=== PATIENT | male | born 1990 | race African-American/Black ===

== ENCOUNTER 2017-11-20 10:18 | Emergency (ER) | payer BC, MEDICAID ==
[2017-11-20 11:37] VITALS: BP 119/68
[2017-11-20] MEDS ORDERED: Ibuprofen TAB* 400 MG PO ONE (11:41)
--- NOTE | 2017-11-20 12:28 | RAD ---
Indication: Neck pain. INDICATION: Neck pain. 5 views of the cervical spine demonstrate vertebral bodies to be normal in height. Disc spaces are well-preserved. Spinal canal appears to be intact. No fracture is noted. IMPRESSION: No fracture of the cervical spine is noted.
--- NOTE | 2017-11-20 12:33 | UC ---
Neck Pain HPI - HPI Summary HPI Summary: Pt reports that he was lifting weights this morning, was lifting a heavy weight and heard a pop and felt a sharp pain in upper back and mid neck. With sudden oset of cervical neck mesa and reduced ROM of neck secondary to pain. also, c/o sudden onset of tingling that radiates from upper back down left arm. - History of Current Complaint Hx Obtained From: Patient Onset/Duration Of Injury/Symptoms: Hours Mechanism Of Injury: No Known Trauma Onset/Duration: Sudden Onset Severity: Moderate Character: Aching, Stiff Aggravating Factors: Movement Alleviating Factors: Position Associated Signs & Symptoms: Positive: Negative - Risk Factors Meningitis Risk Factors: Negative Risk Factors For Cervical Spine Injury: Posterior Midline Cervical Spine Tenderness <Karla Beck NP - Last Filed: 11/20/17 12:37> <Anjali Tomlinson - Last Filed: 11/20/17 13:10> - History of Current Complaint Chief Complaint: UCBackPain Stated Complaint: NECK PAIN Time Seen by Provider: 11/20/17 11:38 - Allergies/Home Medications Allergies/Adverse Reactions: Allergies Allergy/AdvReac Type Severity Reaction Status Date / Time No Known Allergies Allergy Verified 11/20/17 11:37 PMH/Surg Hx/FS Hx/Imm Hx Previously Healthy: Yes - Surgical History Surgical History: Yes Surgery Procedure, Year, and Place: right shoulder - Family History Known Family History: Positive: Cardiac Disease - Social History Occupation: Employed Full-time Lives: With Family Alcohol Use: Rare Substance Use Type: None Smoking Status (MU): Never Smoked Tobacco Have You Smoked in the Last Year: No <Karla Beck NP - Last Filed: 11/20/17 12:37> Review Of Systems Constitutional: Positive: Negative Skin: Positive: Negative Eyes: Positive: Negative ENT: Positive: Negative Respiratory: Positive: Negative Cardiovascular: Positive: Negative Gastrointestinal: Positive: Negative Genitourinary: Positive: Negative Musculoskeletal: Positive: Decreased ROM - neck, Myalgia Neurological: Positive: Negative Psychological: Positive: Negative All Other Systems Reviewed And Are Negative: Yes <Karla Beck NP - Last Filed: 11/20/17 12:37> Physical Exam Triage Information Reviewed: Yes Appearance: Pain Distress - mild Vital Signs: Initial Vital Signs Temp 98.1 F 11/20/17 11:23 Pulse 64 11/20/17 11:23 Resp 18 11/20/17 11:23 BP 119/68 11/20/17 11:23 Vital Signs Reviewed: Yes Eye Exam: Normal ENT Exam: Normal Dental Exam: Normal Neck exam: Other Neck: Positive: Tenderness @ - lower cervical, 5-7 and upper thoracic Respiratory Exam: Normal Cardiovascular Exam: Normal Musculoskeletal Exam: Other Musculoskeletal: Positive: ROM Limited @ - neck Neurological Exam: Normal Psychological Exam: Normal Skin Exam: Normal <Karla Beck NP - Last Filed: 11/20/17 12:37> Vital Signs: Initial Vital Signs Temp 98.1 F 11/20/17 11:23 Pulse 64 11/20/17 11:23 Resp 18 11/20/17 11:23 BP 119/68 11/20/17 11:23 <Anjali Tomlinson - Last Filed: 11/20/17 13:10> Neck Pain Course/Dx - Course Course Of Treatment: INDICATION: Neck pain. 5 views of the cervical spine demonstrate vertebral bodies to be normal in height. Disc. spaces are well- preserved. Spinal canal appears to be intact. No fracture is noted. IMPRESSION : No fracture of the cervical spine is noted. - Differential Dx/Diagnosis Differential Dx/HQI/PQRI: Cervical Fracture, Strain, Torticollis Provider Diagnoses: upper back, cervical neck strain <Karla Beck NP - Last Filed: 11/20/17 12:37> Discharge <Karla Beck NP - Last Filed: 11/20/17 12:37> <Anjali Tomlinson - Last Filed: 11/20/17 13:10> - Discharge Plan Condition: Stable Disposition: HOME Prescriptions: Cyclobenzaprine TAB* [Flexeril 10 MG TAB*] 10 mg PO Q8H PRN #15 tab PRN Reason: Pain Ibuprofen TAB* [Motrin TAB* 800 MG] 800 mg PO Q8H PRN #21 tab PRN Reason: Pain Patient Education Materials: Cervical Strain (ED), Acute Neck Pain (ED) Forms: *Work Release Referrals: Danny Ortiz [Medical Doctor] - If Needed PAULETTE Trejo [Primary Care Provider] - If Needed Attestation Statement User Type: Provider - I was available for consult. This patient was seen by the SARAH. The patient was not presented to, seen by, or examined by me. -Gavi <Anjali Tomlinson - Last Filed: 11/20/17 13:10>
== END 2017-11-20 12:42 | disposition home or self-care (01) ==
LOC: UCCORT 10:23
DX: S29.012A Strain of muscle and tendon of back wall of thorax, initial encounter (principal); S16.1XXA Strain of muscle, fascia and tendon at neck level, initial encounter; X50.3XXA Overexertion from repetitive movements, initial encounter; Y93.B3 Activity, free weights; Y92.9 Unspecified place or not applicable
CPT/HCPCS: 72050; 99212; A9270-GY; G0463

== ENCOUNTER 2018-07-29 15:10 | Emergency (ER) | payer BC ==
[2018-07-29 16:32] VITALS: BP 130/75
--- NOTE | 2018-07-29 17:27 | UC ---
Complaint Male HPI - HPI Summary HPI Summary: 28-year-old male presents with complaints of "tingling" at the end of urination. States he had unprotected oral and vaginal intercourse approximately 2 weeks ago with a new female partner. His partner's STI status is unknown. He denies fever, chills, abdominal pain, flank pain, nausea, vomiting, dysuria, frequency, urgency, penile discharge, or genital lesions. States he is routinely tested every 6 months. Was last tested approximately 3 months ago. He is requesting STI testing at this time. - History of Current Complaint Chief Complaint: UCGU Stated Complaint: PERSONAL Time Seen by Provider: 07/29/18 17:14 Hx Obtained From: Patient Pain Intensity: 0 Associated Signs And Symptoms: Negative: Back Pain, Fever, Hematuria, Dysuria, Nausea, Vomiting(# Of Episodes =), Penile Swelling, Penile Discharge - Allergies/Home Medications Allergies/Adverse Reactions: Allergies Allergy/AdvReac Type Severity Reaction Status Date / Time No Known Allergies Allergy Verified 07/29/18 16:34 Home Medications: Home Medications NK [No Home Medications Reported] 07/29/18 [History Confirmed 07/29/18] PMH/Surg Hx/FS Hx/Imm Hx Previously Healthy: Yes - denies significant past medical history - Surgical History Surgical History: Yes Surgery Procedure, Year, and Place: right shoulder - Family History Known Family History: Positive: Cardiac Disease - Social History Occupation: Employed Full-time Lives: With Family Alcohol Use: Rare Substance Use Type: None Smoking Status (MU): Current Some Day Smoker Have You Smoked in the Last Year: No Review of Systems Constitutional: Negative Skin: Negative Genitourinary: Negative Is Patient Immunocompromised?: No All Other Systems Reviewed And Are Negative: Yes Physical Exam Triage Information Reviewed: Yes Appearance: Well-Appearing, No Pain Distress, Well-Nourished Vital Signs: Initial Vital Signs Temp 98.4 F 07/29/18 16:16 Pulse 86 07/29/18 16:16 Resp 18 07/29/18 16:16 BP 130/75 07/29/18 16:16 Pulse Ox 100 07/29/18 16:16 Respiratory: Positive: Lungs clear, Normal breath sounds, No respiratory distress Cardiovascular: Positive: RRR, No Murmur Abdomen Description: Positive: Nontender, No Organomegaly, Soft. Negative: CVA Tenderness (R), CVA Tenderness (L), Distended, Guarding Bowel Sounds: Positive: Present Male Genital Exam: Positive: Other - Patient refused genital exam Neurological: Positive: Alert Skin Exam: Normal Complaint Male Course/Dx - Course Course Of Treatment: 28 year old male presents requesting STI testing after unprotected sex 2 weeks ago. Has had 2 episodes of "tingling" at the end of micturition but no lesions. Declines examination of genitalia. Testing for HIV, syphillis, gonorhhea, and chlamydia ordered. Counseling regarding safe sex practices and need for follow up HIV testing provided. Verbalizes understanding. - Differential Dx/Diagnosis Provider Diagnoses: Painful urination, routine testing sexually-transmitted infections Discharge - Sign-Out/Discharge Documenting (check all that apply): Patient Departure All imaging exams completed and their final reports reviewed: No Studies - Discharge Plan Condition: Stable Disposition: HOME Patient Education Materials: Sexually Transmitted Diseases (ED), Condom Use (ED ), Safe Sex (ED) Referrals: Amy Inman [Primary Care Provider] - If Needed Additional Instructions: We will contact you with any positive results from the testing today and start you on an appropriate treatment if needed. Be aware that a negative HIV test today does not rule out possibility of an HIV infection. He can take up to 3 months from the time of exposure before a positive test result. He will need to follow up in 3 months for additional testing. Make sure you are using a condom consistently. Your blood pressure was slightly elevated today. Follow-up your primary care provider to have this rechecked. - Billing Disposition and Condition Condition: STABLE Disposition: Home
== END 2018-07-29 17:41 | disposition home or self-care (01) ==
LOC: UCCORT 15:10
DX: R30.0 Dysuria (principal); Z11.3 Encounter for screening for infections with a predominantly sexual mode of transmission; Z72.0 Tobacco use
CPT/HCPCS: 36415; 86592; 86703; 87491; 87591; 99211; G0463